=== PATIENT | female | born 1970 | race Caucasian/White ===

== ENCOUNTER → 2023-08-16 10:29 | Outpatient (REF) | payer OTHER, SELFPAY | LOC: RCS 10:29 | PROVIDERS: ATTENDING PHYSICIAN Internal Medicine | DX: I35.8 Other nonrheumatic aortic valve disorders (principal) | CPT/HCPCS: 93306 ==

== ENCOUNTER → 2024-06-11 14:40 | Outpatient (REF) | payer OTHER, SELFPAY | LOC: HWRAD 14:40 | PROVIDERS: ATTENDING PHYSICIAN Internal Medicine | DX: E04.1 Nontoxic single thyroid nodule (principal) | CPT/HCPCS: 76536 ==

== ENCOUNTER → 2024-06-27 10:04 | Outpatient (REF) | payer OTHER, SELFPAY ==
[2024-06-27 10:10] VITALS: BP 134/60; BP_SYST 54
== END ==
LOC: RADI 10:04
PROVIDERS: ATTENDING PHYSICIAN Internal Medicine
DX: E04.1 Nontoxic single thyroid nodule (principal)
CPT/HCPCS: 88173; 10005

== ENCOUNTER → 2024-12-27 11:00 | Outpatient (REF) | payer SELFPAY | LOC: HWRAD 11:00 | PROVIDERS: ATTENDING PHYSICIAN Internal Medicine; FAMILY PHYSICIAN Internal Medicine | DX: I25.10 Atherosclerotic heart disease of native coronary artery without angina pectoris (principal) | CPT/HCPCS: 75571 ==

== ENCOUNTER → 2025-03-21 11:09 | Outpatient (REF) | payer OTHER, SELFPAY | LOC: HWRAD 11:09 | PROVIDERS: ATTENDING PHYSICIAN Physician Assistant; FAMILY PHYSICIAN Internal Medicine | DX: E04.1 Nontoxic single thyroid nodule (principal) | CPT/HCPCS: 76536 ==